=== PATIENT | male | born 1990 | race Two or more races ===

== ENCOUNTER 2024-07-29 21:22 | Emergency (ER) | payer OTHER ==
[~2024-07-29] VITALS: Ht 167.6 cm; Wt 49.0 kg
[2024-07-29 21:36] VITALS: BP 142/101; PULSE 99; RESP 18; TEMP 98.2; O2SAT 97
[2024-07-29] MEDS ORDERED: BACDST PO (22:30)
== END 2024-07-29 22:39 | disposition home or self-care (01) ==
LOC: ER 21:22
DX: S60.312A Abrasion of left thumb, initial encounter (principal); W55.01XA Bitten by cat, initial encounter; Y93.89 Activity, other specified; Y92.89 Other specified places as the place of occurrence of the external cause; Y99.8 Other external cause status